=== PATIENT | male | born 1985 | race Caucasian/White ===

== ENCOUNTER 2024-12-25 08:34 | Outpatient (CLI) | payer OTHER, SELFPAY ==
--- OUTSIDE RECORDS SUMMARY | 2024-12-25 08:38 | XMS_ITS | Clinical Summary ---
Author Organization [facility] [employer] Address [address] [place] [address] Care Team Providers Care [place] Manager Name Role Phone Unavailable Primary Care Provider Unavailabl e Source Comments [facility] [employer],non-owned Affiliates and Associated Physician Practices is amultiple site organization consisting of ambulatory clinics and hospital sitesin [place], [place], [place] and [place]. This disclosure is being madepursuant to the Care Everywhere program and may not contain all information available regarding this patient. Last updated 18.[facility] [employer] Allergies No known active allergies Medications * Be aware that medications may not be up to date on this document. Alwaysverify current medications with the patient. ofloxacin (OCUFLOX) 0.3 % ophthalmic solutionIndications :Mucopurulent conjunctivitis of right eye 1-2 gtt q4 hours while awake x2 days, then 1-2 gtt QID x 5 days in right eye 5 mL 7 Active Active Problems No known active problems Social History Tobacco Use Types Packs/Day Years Used Date Smoking Tobacco: Never Sex and Gender Information Value Date Recorded Sex Assigned at Not on file Legal Sex Male 9:03 PM CDT Gender Identity Not on file Sexual Orientation Not on file Last Filed Vital Signs Vital Sign Reading Time Taken Comments Blood Pressure 120/74 01/29/2017 4:47 PM CDT Pulse 54 01/29/2017 4:47 PM CDT Temperature 36.6 C (97.9 F) 01/29/2017 4:47 PM CDT Respiratory Rate 16 01/11/2017 9:13 AM CDT Oxygen Saturation 99% 01/29/2017 4:47 PM CDT Inhaled Oxygen Concentration - - Weight 79.4 kg (175 lb) 01/29/2017 4:47 PM CDT Height 170.2 cm (5' 7 ) 01/29/2017 4:47 PM CDT Body Mass Index 27.41 01/29/2017 4:47 PM CDT Plan of Treatment Health Maintenance Due Date Last Done Comments LIPID TESTING 1984 HIV SCREENING 1999 HEPATITIS C SCREENING 04/17/2002 DTAP/TDAP/TD VACCINES (1 - Tdap) 2003 HEPATITIS B VACCINE (1 of 3 - 19+ 3-dose series) 2003 COVID-19 VACCINE (1 - 2023-2 5 season) 2024 DEPRESSION SCREENING 09/09/2024 INFLUENZA VACCINE (Season Ended) 2025 ZOSTER VACCINE (1 of 2) 2034 HIB VACCINE Aged Out No longer eligi ble based on patient's age to complete this topic HPV VACCINE Aged Out No longer eligi ble based on patient's age to complete this topic MENINGOCOCCAL (Group B) VACC INE SHARED DECISION-MAKING Aged Out No longer eligibl e based on patient's age to complete this topic MENINGOCOCCAL GROUPS A/C/Y/W VACCINE Aged Out No longer eligible b ased on patient's age to complete this topic PNEUMOCOCCAL VACCINE Aged Out No long er eligible based on patient's age to [place] [id number]
[2024-12-25 13:41] LABS: Cholesterol 219 mg/dL (0-200); HDL Direct 49 mg/dL; Triglycerides 76 mg/dL (<150)
[2024-12-25 13:52] LABS: LDL Cholesterol Direct 123 mg/dL
[2024-12-25 14:10] LABS: Prostate Specific Antigen 0.5 ng/mL (< OR = 4.0)
== END 2024-12-25 08:35 | disposition home or self-care (01) ==
LOC: ANHGOSHLAB 08:35
PROVIDERS: PCP Family Medicine; Visit Provider Family Medicine
DX: Z12.5 Encounter for screening for malignant neoplasm of prostate (principal); Z13.220 Encounter for screening for lipoid disorders
CPT/HCPCS: 36415; 80061; 84153; G0103